=== PATIENT | female | born 1995 ===

== ENCOUNTER 2024-10-27 15:00 | Inpatient (IN) | payer OTHER ==
[~2024-10-27] VITALS: Ht 154.9 cm; Wt 72.6 kg
[2024-10-30 16:03] VITALS: BP 136/87
[2024-10-30 16:49] LABS: HEMATOCRIT 33.5 % (36.0-45.00); HEMOGLOBIN 11.4 g/dL (12.0-15.00); MEAN CELL VOLUME 87.8 fL (80.00-100.00); MEAN CORPUSCULAR HEMOGLOBIN 29.7 pg (27.00-32.0); MEAN CORPUSCULAR HGB CONC 33.9 g/dl (32.0-36.0); PLATELET COUNT 202 K/uL (150-450); RED BLOOD COUNT 3.82 M/uL (4.00-6.00); RED CELL DISTRIBUTION WIDTH 13.6 % (11.5-14.5)
[2024-10-30] MEDS ORDERED: RINGERS SOLUTION,LACTATED 1,000 ML IV SCH (17:00)
[2024-10-30 17:12] LABS: INR < 0.93; PARTIAL THROMBOPLASTIN TIME 24.3 SECONDS (22.0-34.0); PROTHROMBIN TIME 9.9 SECONDS (9.0-11.5)
[2024-10-30 17:16] LABS: ALBUMIN 3.1 gm/dL (3.4-5.0); BILIRUBIN TOTAL 0.22 mg/dL (0.3-1.2); CALCIUM 9.4 mg/dL (8.5-10.1); CREATININE SERUM 1.17 mg/dL (0.55-1.02); GFR 53.95; GLOBULINA 3.5 G/DL (2.4-3.5); POTASSIUM 4.08 mEq/L (3.5-5.1); TOTAL PROTEIN 6.6 gm/dL (6.4-8.2)
[2024-10-30] MEDS ORDERED: MORPHINE SULFATE 4 MG/ML VIAL IV ONE ×2 (18:30→20:00)
[2024-10-30] MEDS ORDERED: ONDANSETRON HCL 2 MG/ML VIAL IV PRN (18:45)
[2024-10-30] MEDS ORDERED: KETOROLAC TROMETHAMINE 30 MG VIAL IV NR (18:45)
[2024-10-30] MEDS ORDERED: MORPHINE SULFATE 4 MG/ML CARTRIDGE IV PRN (18:45)
[2024-10-30] MEDS ORDERED: OXYTOCIN 1,000 ML IV SCH (18:45)
[2024-10-30] MEDS ORDERED: KETOROLAC TROMETHAMINE 30 MG VIAL IV SCH (20:00)
[2024-10-30] MEDS ORDERED: ACETAMINOPHEN 325 MG TABLET PO SCH (20:00)
[2024-10-30 22:30] VITALS: BP 140/80
[2024-10-30] MEDS ORDERED: OXYTOCIN 10 UNITS/ML VIAL IV ONE (22:30)
[2024-10-30] MEDS ORDERED: ERYTHROMYCIN BASE OPHT 1GM EACH TUBE OP ONE (22:30)
[2024-10-31] VITALS: BP 127/71
[2024-10-31] MEDS ORDERED: KETOROLAC TROMETHAMINE 10 MG TABLET PO SCH (08:00)
[2024-10-31] MEDS ORDERED: OxyCODONE HCL 5 MG TABLET (ROXICODONE) PO SCH (08:00)
[2024-10-31 08:53] VITALS: BP 135/85
[2024-10-31] MEDS ORDERED: IBUprofen 400 MG TABLET PO SCH (09:00)
[2024-10-31] MEDS ORDERED: ACETAMINOPHEN 500 MG GEL..CAP PO SCH (12:00)
[2024-10-31 13:51] VITALS: BP 118/80
[2024-10-31 15:53] VITALS: BP 117/76
[2024-10-31 21:31] VITALS: BP 107/82
[2024-11-01] VITALS: BP 123/78
[2024-11-01 08:49] VITALS: BP 116/75
== END 2024-11-01 11:53 | disposition home or self-care (01) | DRG 788 ==
LOC: LDR 10-30 16:00 → O/R 10-30 17:56 → OB/GYN 10-30 18:45
PROVIDERS: Obstetrics & Gynecology; ADMIT Obstetrics & Gynecology Maternal & Fetal Medicine; ATTEND Obstetrics & Gynecology Maternal & Fetal Medicine
PROC: 4A1HXCZ Monitoring of Products of Conception, Cardiac Rate, External Approach (ICD-10-PCS; 2024-10-30)
PROC: 10D00Z1 Extraction of Products of Conception, Low, Open Approach (ICD-10-PCS; principal; 2024-10-30 16:30)
DX: O45.8X3 Other premature separation of placenta, third trimester (principal); Z3A.37 37 weeks gestation of pregnancy; Z37.0 Single live birth